=== PATIENT | female | born 2000 | race Caucasian/White ===

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

== ENCOUNTER 2021-02-26 18:24 | Emergency (ER) | payer OTHER ==
[~2021-02-26] VITALS: Ht 160 cm; Wt 50.9 kg
[2021-02-26 18:35] VITALS: TEMP 98.3
[2021-02-26 19:04] LABS: COLLECTION METHOD CLEAN CATCH
[2021-02-26 19:17] LABS: ALBUMIN 4.2 gm/dL (3.5-5.0); BILIRUBIN,TOTAL 0.3 mg/dL (0.0-1.0); CREATININE, serum 0.86 (0.52-1.25); POTASSIUM 4.4 mmol/L (3.4-5.0); TOTAL PROTEIN 7.3 gm/dL (6.4-8.2)
[2021-02-26 19:20] LABS: BASO # 0.1 (0.0-0.2); BASO % 0.9 % (0.0-2.0); EOS # 0.2 (0.0-0.7); GRAN # 4.6 (1.4-6.5); GRAN % 58.1 % (42.2-75.2); HEMATOCRIT 43.4 % (35.0-45.0); HEMOGLOBIN 13.2 g/dl (12.0-15.0); LYMPH # 2.4 (1.2-3.4); LYMPH % 30.3 % (20.0-51.0); MEAN CELL VOLUME 85 fl (80.0-95.0); MEAN CORPUSCULAR HEMOGLOBIN 26 pg (26.0-32.0); MEAN CORPUSCULAR HGB CONC 30 g/dl (33.0-37.0); MEAN PLATELET VOLUME 10.2 fl (7.4-10.4); MONO # 0.7 (0.1-0.6); MONO % 8.4 % (1.7-9.3); PLATELET COUNT 245 K/mm3 (130-400); REDCELL DISTRIBUTION WIDTH-CV 15.7 % (11.5-14.5)
[2021-02-26 19:22] LABS: MUCOUS Present /lpf; PH 5 (5-8); SQUAMOUS EPITHELIAL None Seen /hpf; URINE APPEARANCE Clear; URINE BACTERIA Rare /hpf; URINE BILIRUBIN Negative (NEGATIVE); URINE BLOOD Negative (NEGATIVE); URINE COLOR Yellow; URINE GLUCOSE Negative (NEGATIVE); URINE KETONE Negative (NEGATIVE); URINE LEUKOCYTE ESTERASE Negative (NEGATIVE); URINE NITRATE Negative (NEGATIVE); URINE PROTEIN(semi-quant) Negative (NEGATIVE); URINE RBC 0-2 /hpf; URINE UROBILINOGEN Negative (NEGATIVE)
[2021-02-26] MEDS ORDERED: TOPAMAX50 MG PO (20:13)
[2021-02-26] MEDS ORDERED: SLYND4 MG PO (20:13)
[2021-02-26 21:02] VITALS: BP 123/89; PULSE 81
== END 2021-02-26 21:02 | disposition short-term general hospital (02) ==
LOC: COL.ER 18:24
PROVIDERS: Nurse Practitioner Family
DX: R10.31 Right lower quadrant pain (principal); R11.0 Nausea; G43.909 Migraine, unspecified, not intractable, without status migrainosus; Z32.01 Encounter for pregnancy test, result positive; Z79.899 Other long term (current) drug therapy
CPT/HCPCS: J2270; J2405; J7030

== ENCOUNTER 2021-06-05 09:44 | Emergency (ER) | payer OTHER ==
[~2021-06-05] VITALS: Ht 160 cm; Wt 50.0 kg
[~2021-06-05 09:44] MED LIST: SLYND4 MG PO; TOPAMAX50 MG PO
[2021-06-05 09:50] VITALS: BP 117/86; PULSE 99; TEMP 98.3
[2021-06-05 11:06] LABS: COLLECTION METHOD CLEAN CATCH
[2021-06-05 11:13] LABS: PH 7 (5-8); URINE APPEARANCE Clear; URINE BACTERIA None Seen /hpf; URINE BILIRUBIN Negative (NEGATIVE); URINE BLOOD 2+ (NEGATIVE); URINE COLOR Straw; URINE GLUCOSE Negative (NEGATIVE); URINE KETONE Negative (NEGATIVE); URINE LEUKOCYTE ESTERASE Trace (NEGATIVE); URINE NITRATE Negative (NEGATIVE); URINE PROTEIN(semi-quant) Negative (NEGATIVE); URINE RBC 0-2 /hpf; URINE UROBILINOGEN Negative (NEGATIVE)
[2021-06-05] MEDS ORDERED: CEPHALEXIN500 M1 PO (12:40)
[2021-06-06] MEDS ORDERED: VALTREX1 GM PO (10:07)
== END 2021-06-05 12:52 | disposition home or self-care (01) ==
LOC: COL.ER 09:44
PROVIDERS: Family Medicine
DX: S31.41XA Laceration without foreign body of vagina and vulva, initial encounter (principal); R11.0 Nausea; X58.XXXA Exposure to other specified factors, initial encounter

== ENCOUNTER 2021-06-06 09:02 | Emergency (ER) | payer OTHER ==
[~2021-06-06] VITALS: Ht 160 cm; Wt 50.0 kg
[~2021-06-06 09:02] MED LIST changes: +CEPHALEXIN500 M1 PO
[2021-06-06 09:09] VITALS: BP 138/94; TEMP 97.5
[2021-06-06] MEDS ORDERED: VALTREX1 GM PO (10:07)
[2021-06-06 10:15] VITALS: PULSE 84
== END 2021-06-06 10:15 | disposition home or self-care (01) ==
LOC: COL.ER 09:02
DX: S31.41XA Laceration without foreign body of vagina and vulva, initial encounter (principal); X58.XXXA Exposure to other specified factors, initial encounter

== ENCOUNTER 2022-03-02 12:05 | Emergency (ER) | payer OTHER ==
[~2022-03-02] VITALS: Ht 160 cm; Wt 52.3 kg
[~2022-03-02 12:05] MED LIST changes: +VALTREX1 GM PO
[2022-03-02 12:25] VITALS: TEMP 98.8
[2022-03-02] MEDS ORDERED: FLEXERIL 1010 MG/TAB PO (14:10)
[2022-03-02 14:13] VITALS: BP 116/75; PULSE 84
== END 2022-03-02 14:20 | disposition home or self-care (01) ==
LOC: COL.ER 12:05
DX: S29.011A Strain of muscle and tendon of front wall of thorax, initial encounter (principal); W18.30XA Fall on same level, unspecified, initial encounter; Y93.01 Activity, walking, marching and hiking
CPT/HCPCS: J1885

== ENCOUNTER 2022-12-14 19:21 | Outpatient (CLI) | payer OTHER ==
[~2022-12-14] VITALS: Ht 160 cm; Wt 66.8 kg
[~2022-12-14 19:21] MED LIST changes: +FLEXERIL 1010 MG/TAB PO
--- NOTE | 2022-12-14 19:25 | NUR ---
Ambulatory to room for assessment, accompanied by friend. Oriented to room, monitor, plan of care. Pt reports sharp pain "across upper abd and down right side q 30 min" Denies vaginal bleeding, LOF, or vagnial pressure.
[2022-12-14 19:45] VITALS: BP 113/69; PULSE 78; TEMP 98
[2022-12-14 20:30] VITALS: BP 99/57; PULSE 78
[2022-12-14 21:00] VITALS: BP 103/58; PULSE 85
--- NOTE | 2022-12-14 21:30 | NUR ---
Discharge instruction reviewed with pt, questions invited and answered.
== END 2022-12-14 21:30 | disposition home or self-care (01) ==
LOC: LDRO 19:21 → LDR 19:25 → LDRO 21:30
DX: O99.891 Other specified diseases and conditions complicating pregnancy (principal); R10.9 Unspecified abdominal pain; Z3A.30 30 weeks gestation of pregnancy
CPT/HCPCS: OP